=== PATIENT | female | born 1985 | race Caucasian/White ===

== ENCOUNTER 2016-09-09 10:47 | Emergency (ER) | payer OTHER ==
[~2016-09-09] VITALS: Ht 160 cm; Wt 62.0 kg
[~2016-09-09 10:47] MED LIST: ENDOCET 5-3251 EACH PO; IBUPROFEN800 MG PO; PRENATAL TABLE1 EAC3 PO; PRENATAL1 EACH PO; TYLENOL REGULA325 MG PO
[2016-09-09 15:40] VITALS: BP 116/70
== END 2016-09-09 15:41 | disposition home or self-care (01) ==
LOC: EME 10:47
DX: O26.891 Other specified pregnancy related conditions, first trimester (principal); R10.9 Unspecified abdominal pain; M54.2 Cervicalgia; M25.519 Pain in unspecified shoulder; V49.60XA Unspecified car occupant injured in collision with unspecified motor vehicles in traffic accident, initial encounter; Z3A.01 Less than 8 weeks gestation of pregnancy
CPT/HCPCS: 76801; 84702; 99281; 99283

== ENCOUNTER 2017-05-07 05:21 | Inpatient (IN) | payer OTHER ==
[~2017-05-07] VITALS: Ht 160 cm; Wt 71.2 kg
[2017-05-07] VITALS (7 sets, daily range): BP systolic 113–138; BP diastolic 61–76
[~2017-05-07 05:21] MED LIST changes: +TYLENOL EXTRA500 MG PO
[2017-05-07] MEDS ORDERED: TUMS500 MG PO (06:25)
[2017-05-07] MEDS ORDERED: IBUPROFEN800 MG PO (08:12)
[2017-05-07] MEDS ORDERED: ENDOCET 5-3251 EACH PO (08:13)
[2017-05-07 13:03] LABS: POINT-OF-CARE METER ID UU13113692
[2017-05-08 06:01] LABS: EOSINOPHIL (%) 0.8 % (0-5); EOSINOPHIL COUNT 0.1 K/uL (0-0.3); HEMATOCRIT 33.9 % (36.0-46.0); IMMATURE GRANULOCYTE (%) 1.2 % (0.0-0.7); IMMATURE GRANULOCYTE COUNT 0.1 K/uL; INSTRUMENT ABS NEUTROPHIL CT 7.5 K/uL; LYMPHOCYTE COUNT 2.4 K/uL (1.0-2.8); MCHC 32.4 G/DL (30.0-36.0); MCV 92.4 FL (83-99); MEAN PLAT.VOLUME 10.6 uM^3 (9.5-12.4); MONOCYTE (%) 8.2 % (3-12); MONOCYTE COUNT 0.9 K/uL (0-0.8); NEUTROPHIL (%) 67.7 % (45-76); NEUTROPHIL COUNT 7.5 K/uL (1.8-6.4); PLATELET COUNT 169 K/uL (156-360); RBC DIS.WIDTH-CV 13.6 % (11.8-14.6); RBC DIS.WIDTH-SD 46.2 % (39-53); RED BLOOD COUNT 3.67 M/uL (3.80-5.20); WHITE BLOOD COUNT 11.1 K/uL (4.1-10.2)
[2017-05-08 07:34] VITALS: BP 115/56
[2017-05-08 11:50] VITALS: BP 102/61
[2017-05-08 15:27] VITALS: BP 117/62
[2017-05-09 07:31] VITALS: BP 128/70
== END 2017-05-09 12:50 | disposition home or self-care (01) | DRG 766 ==
LOC: 2WEST 05:21 → 2SOUTH 10:21 → 2WEST 05-08 12:05
PROVIDERS: Obstetrics & Gynecology
DX: O34.211 Maternal care for low transverse scar from previous cesarean delivery (principal); O24.420 Gestational diabetes mellitus in childbirth, diet controlled; Z30.2 Encounter for sterilization; Z3A.39 39 weeks gestation of pregnancy; Z37.0 Single live birth; Z80.0 Family history of malignant neoplasm of digestive organs; Z82.49 Family history of ischemic heart disease and other diseases of the circulatory system; Z83.3 Family history of diabetes mellitus
CPT/HCPCS: 36415; 82948; 85025; 86850; 86900; 86901; 88302; J0690; J1100; J2175; J2270; J2274; J2405; J7120